=== PATIENT | male | born 1960 | race Caucasian/White ===

== ENCOUNTER 2023-10-26 00:16 | Day surgery (SDC) | payer BC, SELFPAY ==
[2023-10-09 15:21] VITALS: BMI 27.8
[2023-10-26 06:42] VITALS: BP 124/83; PULSE 99; RESP 18; TEMP 36.2; O2SAT 97
[2023-10-26] MEDS: LACTATED RINGERS 1,000 ML 150 ML IV CONT (06:52)
--- NOTE | 2023-10-26 07:06 | WPDANESEPPF ---
Anes - Initial Pre Proc Eval Procedure: Operation Date: 10/26/23 08:00 Proposed Procedures p Colonoscopy - Trell Diaz MD Date/Time: 10/26/23 07:06 Surgeon: Trell Diaz MD Pre Op Diagnosis: hx colon polyps Patient Data Age: 62 Gender: M Height: 1.83 m Weight: 91.8 kg Last Vital Signs Temp 36.2 C L 10/26/23 06:42 Pulse 99 10/26/23 06:42 Resp 18 10/26/23 06:42 BP 124/83 10/26/23 06:42 Pulse Ox 97 10/26/23 06:42 O2 Del Method Room Air 10/26/23 06:42 Allergies Allergy/AdvReac Type Severity Reaction Status Date / Time No Known Allergies Allergy Verified 10/26/23 06:41 Home Medications Medication Instructions Recorded Confirmed Type albuterol sulfate 90 mcg/actuation 90 inh inhalation PRN PRN 10/09/23 10/09/23 History aerosol inhaler Shortness Of Breath Or Wheezing fluticasone furoate 100 100 inh inhalation PRN PRN 10/09/23 10/09/23 History mcg-vilanterol 25 mcg/dose Shortness Of Breath Or Wheezing inhalation powder (Breo Ellipta) Patient hx anesthesia problems: none Family hx anesthesia problems: none Results Review: All pre-operative results and documents have been reviewed as part of the pre-operative evaluation. [facility] Past Medical History Medical History Prostate cancer Surgical History Surgical History History of prostatectomy Family History Family History Grandparent Diabetes mellitus Sibling Diabetes mellitus Mother Hypertension Father Patient's father is Social History Social History Smoking status: Never smoker Alcohol intake: current Alcohol use details: weekends occasionally Substance use: never Substance use type: does not use Lack of Transportation: No Lack of Food: Never True Current Housing: I Have Housing Concerned About Future Housing: No Difficulty Paying Gas/Electric Bills: No Difficulty Paying for Meds: No Currently Unemployed: No Education: Bachelor's Degree Living arrangements: with family Spiritual care concerns: No Anes - Eval Final PreProcedure Day of Procedure 10/26/23 07:06 Patient weight: overweight Heart: regular rate and rhythm Lungs: clear to auscultation Airway: Mallampati scale class II Neurological: alert and oriented Last oral intake: >/= 8 hours ASA classification: III Emergent: no Anesthetic plan: proceed Anesthesia type and monitoring: general GIVS and standard monitoring Results Review: All pre-operative results and documents have been reviewed as part of the pre-operative evaluation. Informed Consent: The patient's anesthetic plan and its attendant risks and benefits were discussed with the patient/family/POA. Questions were solicited and answers provided to the satisfaction of the patient/family/POA.
--- NOTE | 2023-10-26 08:03 | PM.HPGS ---
History of Present Illness History of Present Illness Consent: Risks, benefits, and alternatives have been discussed and questions answered. Patient agrees to proceed with procedure. Chief complaint: hx colon polyps Narrative: Juanito Roa is a 62 year old male with colon polyp in 2010 Review of Systems Review of Systems: All systems reviewed & are unremarkable except as noted in HPI and below PMFSH Past Medical History Medical History (Updated 10/26/23 @ 08:04 by Trell Diaz MD) Colon polyp Prostate cancer Surgical History Surgical History History of prostatectomy Family History Family History Grandparent Diabetes mellitus Sibling Diabetes mellitus Mother Hypertension Father Patient's father is Social History Social History Smoking status: Never smoker Alcohol intake: current Alcohol use details: weekends occasionally Substance use: never Substance use type: does not use Lack of Transportation: No Lack of Food: Never True Current Housing: I Have Housing Concerned About Future Housing: No Difficulty Paying Gas/Electric Bills: No Difficulty Paying for Meds: No Currently Unemployed: No Education: Bachelor's Degree Living arrangements: with family Spiritual care concerns: No Meds Home Medications and Allergies Home Medications Medication Instructions Recorded Confirmed Type albuterol sulfate 90 mcg/actuation 90 inh inhalation PRN PRN 10/09/23 10/09/23 History aerosol inhaler Shortness Of Breath Or Wheezing fluticasone furoate 100 100 inh inhalation PRN PRN 10/09/23 10/09/23 History mcg-vilanterol 25 mcg/dose Shortness Of Breath Or Wheezing inhalation powder (Breo Ellipta) Allergies Allergy/AdvReac Type Severity Reaction Status Date / Time No Known Allergies Allergy Verified 10/26/23 06:41 Vital Signs Vital Signs - 24 hr 10/26/23 06:42 Temperature 97.2 F L Pulse Rate 99 Respiratory Rate 18 Blood Pressure 124/83 Pulse Oximetry 97 Oxygen Delivery Room Air Exam Const: General: comfortable and no acute distress HENMT: Face/Nose/Sinus: Normal nares present Eyes: General: appearance normal, both eyes and all related structures Neck: Neck: no JVD Resp: Auscultation: clear to auscultation bilaterally Cardio: Rate: regular rate Rhythm: regular rhythm GI: Inspection: non-distended GI Palp: Yes Soft to palpation Skin: General skin exam: normal color Neuro: General: gait normal Speech: normal speech Extrem: General: normal to inspection Psych: Mental Status: mental status grossly normal Assessment and Plan Assessment and plan (1) Colon polyp: Code(s): K63.5 - Polyp of colon Status: Acute Assessment and Plan: colonoscopy
[2023-10-26 08:23] VITALS: BP 117/71; PULSE 70; RESP 20; O2SAT 100
[2023-10-26 08:33] VITALS: BP 109/76; PULSE 71; RESP 19; O2SAT 99
[2023-10-26 08:43] VITALS: BP 120/86; PULSE 75; RESP 18; O2SAT 99
== END 2023-10-26 08:45 | disposition home or self-care (01) ==
PROVIDERS: PCP Family Medicine; Visit Provider Internal Medicine Gastroenterology
PROC: 0DJD8ZZ Inspection of Lower Intestinal Tract, Via Natural or Artificial Opening Endoscopic (ICD-10-PCS; CPT 45378; principal; 2023-10-26 08:00)
DX: Z12.11 Encounter for screening for malignant neoplasm of colon (principal); K64.8 Other hemorrhoids; Z86.010 Personal history of colon polyps; Z85.46 Personal history of malignant neoplasm of prostate; Z79.51 Long term (current) use of inhaled steroids
CPT/HCPCS: 45378; J2704; J7120

== ENCOUNTER 2024-06-09 08:30 | Outpatient (CLI) | payer BC, SELFPAY ==
[2024-06-09 11:21] LABS: Basophils Absolute Auto 0.1 K/mm3 (0.0-0.1); Basophils Percent Auto 1.3 % (0.2-1.2); Eosinophils Absolute Auto 0.4 K/mm3 (0-0.3); Eosinophils Percent Auto 8.9 % (0-4.4); Hematocrit 46.8 % (42.0-52.0); Hemoglobin 15.3 g/dL (14.0-18.0); Immature Granulocyte Absolute 0.01 K/mm3 (0.00-0.031); Immature Granulocyte Percent A 0.2 % (0-0.5); Lymphocytes Absolute Auto 1.17 K/mm3 (0.9-3.2); Lymphocytes Percent Auto 25.9 % (18.3-44.2); Mean Corpuscular HGB Conc 32.7 g/dl (32-36); Mean Corpuscular Hemoglobin 30.1 pg (26-34); Mean Corpuscular Volume 92.1 fl (80-100); Mean Platelet Volume 11.3 fl (7.4-10.4); Monocytes Absolute Auto 0.4 K/mm3 (0.1-0.6); Monocytes Percent Auto 8.9 % (2.6-8.5); Neutrophils Absolute Auto 2.5 K/mm3 (1.3-6.7); Neutrophils Percent Auto 54.8 % (45.5-73.1); Platelet Count Result 234 k/mm3 (150-375); Red Blood Count 5.08 M/mm3 (4.6-6.20); Red Cell Distribution Width 12.9 % (11.5-14.5); White Blood Count 4.5 K/mm3 (4.5-10.0)
[2024-06-09 12:41] LABS: Alanine Aminotransferase 15 U/L (6-50); Albumin Level 4.2 g/dL (3.5-5.1); Alkaline Phosphatase 62 U/L (38-126); Anion Gap 7 mmol/L (4-12); Aspartate Amino Transferase 22 U/L (17-59); Bilirubin,Total 0.9 mg/dL (0.2-1.3); Blood Urea Nitrogen 20 mg/dL (9-20); Calcium 9.6 mg/dL (8.4-10.2); Carbon Dioxide 26 mmol/L (22-30); Chloride 103 mmol/L (98-107); Cholesterol 176 mg/dL (0-200); Estimated Glomerular Filt Rate > 60; Glucose 84 mg/dL (65-110); HDL Direct 51 mg/dL; Potassium 4.6 mmol/L (3.4-5.0); Sodium 136 mmol/L (137-145); Triglycerides 80 mg/dL (<150)
[2024-06-09 12:52] LABS: LDL Cholesterol Direct 93 mg/dL
[2024-06-09 13:12] LABS: Prostate Specific Antigen < 0.1 ng/mL (< OR = 4.0)
== END 2024-06-09 08:31 | disposition home or self-care (01) ==
LOC: ANHGOSHLAB 08:31
PROVIDERS: PCP Family Medicine; Visit Provider Nurse Practitioner Family
DX: C61 Malignant neoplasm of prostate (principal); C43.59 Malignant melanoma of other part of trunk; J45.909 Unspecified asthma, uncomplicated
CPT/HCPCS: 36415; 80053; 80061; 84153; 84443; 85025

== ENCOUNTER 2024-07-23 09:50 | Outpatient (CLI) | payer BC, SELFPAY ==
--- NOTE | 2024-07-25 22:44 | WPDHOMESLEEP ---
Sleep Study - Home Unattended Date of Study: 07/23/24 Ordering Provider: Pasquale Gould MD Interpreting Provider: Sunshine Hill MD Home Sleep Study Type: Watch PAT Height: 1.83 m Weight: 90.718 kg Body Mass Index: 27.1 Neck Circumference (inches): 16 [place]: 7 Reason for Sleep Study Loud snoring, occasional daytime sleepiness, fatigue Sleep History Juanito Roa is a 63-year-old man with excessive daytime sleepiness. His [place] Sleepiness Scale score is 11 in the office. There is a high chance of dozing when he watches television or reads. He has witnessed apnea during sleeping. He does not choke or gasp during sleep. He does not have difficulties breathing when he is on his back. He does not awaken with a morning headache. He does awaken with a dry mouth in the morning. He does not have nocturnal heartburn and he does not wake at night to go to the bathroom. He typically wakes more than 3 times during the night. It in the morning he awakens using an alarm. He generally does not have difficulty falling asleep but he may have difficulty returning to sleep after he awakens during the night. He is not anxious about his sleep. He does have fatigue, excessive daytime sleepiness, he is not refreshed on waking in the morning and he does have an urge to fall asleep during the day but not while driving. He does not have any difficulties with these legs, no urge to move his legs, no improvement with dressing. He does not grind his teeth at night or clench his jaws. He does not kick excessively at night. He does not have muscle weakness with strong emotion, he does not feel paralyzed on waking or falling asleep, he does not have vivid dreamlike scenes upon awakening or falling asleep and he does not have dreams during his daytime naps. His normal bedtime is 10 15, falling asleep within 15 minutes, spending 7-1/2 hours in bed, about 6 hours sleeping. He does not take planned naps. On weekends, bedtime is about the same, 10:30 p.m., falling asleep within 15 minutes, spending 8 hours in bed and 6-1/2 hours sleeping. He never feels refreshed on waking. He generally wakes up before his and soup paid id wake time. [facility] Past Medical History Medical History (Updated 07/25/24 @ 22:54 by Sunshine Hill MD) Asthma Colon polyp Prostate cancer Surgical History Surgical History History of prostatectomy Family History Family History Grandparent Diabetes mellitus Sibling Diabetes mellitus Mother Hypertension Father Patient's father is Social History Social History (Updated 06/09/24 @ 07:57 by [place] Cervantes MA) Smoking status: Never smoker Alcohol intake: current Drinks per week: 3 Alcohol use details: weekends occasionally Substance use: never Substance use type: does not use Do You Feel Safe in your Home?: Yes Lack of Transportation: No Lack of Food: Never True Current Housing: I Have Housing Concerned About Future Housing: No Difficulty Paying Gas/Electric Bills: No Difficulty Paying for Meds: No Currently Unemployed: No Education: Bachelor's Degree Living arrangements: with family Spiritual care concerns: No Medications Home Medications ?Medication ?Instructions ?Recorded ?Confirmed ?Type albuterol sulfate 90 mcg/actuation 90 inh inhalation PRN PRN 10/09/23 10/09/23 History aerosol inhaler Shortness Of Breath Or Wheezing fluticasone furoate 100 See Rx Instructions .Route 05/23/24 Rx mcg-vilanterol 25 mcg/dose .COMPLEX #60 ea inhalation powder (Breo Ellipta) amoxicillin 500 mg capsule 500 mg PO Q8H #21 caps 06/30/24 Rx Sleep Procedure The sleep study was completed using [employer] a technically adequate device with seven channels: peripheral arterial tone, actigraphy, body position, snore, respiratory movement, pulse oximetry, sleep staging, and heart rate. Prior to using the device, the patient received verbal and written instructions for its application and was provided with the help desk phone number for additional telephonic instruction with 24-hour availability of qualified personnel to answer questions. Sleep Architecture The total recording time is 7 hours 46 minute. The total sleep time is 6 hours 34 minutes. Sleep latency is 17 minutes. REM latency is 42 minutes. The patient had 10 episodes of waking. Sleep architecture shows 23.7% deep sleep, 53.6% light sleep, and 22.7% stage REM. The patient spent 173 minutes, 43.9% of total sleep time in the supine position. Respiratory Analysis The overall AHI is 29.6 using a 3% desaturation criteria. The central AHI is 3.7. The REM AHI was 43.5. There was no evidence of Nick-Olsen respirations. Oximetry Data The oxygen desaturation index is 16.4. The mean saturation is 93%, the lowest saturation is 85%, and the patient spent 3.7 minutes, 0.9% of the sleep time, below 88%. Snoring Profile Snoring was present, average intensity 43 dB. The patient snored above 45 dB for 89 minutes, 22.6% of the sleep time. Cardiac Profile The average pulse is 65 beats per minute, the lowest pulse is 49 beats per minute, and the highest pulse is 99 beats per minute. The cardiac rhythm analysis in sleep does not show evidence of atrial fibrillation. Assessment and Plan Assessment and Plan (1) Obstructive sleep apnea: Code(s): G47.33 - Obstructive sleep apnea (adult) (pediatric) Status: Acute Assessment and Plan: This home sleep test using WatchPat on 07/23/2024 shows at least moderate obstructive sleep apnea, the apnea-hypopnea index is 29.6 using a 3% criteria, the apnea-hypopnea index is 16.4 using a 4% criteria, desaturation to 85% and moderate snoring. Patient had minimal central sleep apnea, 24 central apneas with an central apnea-hypopnea index of 3.7. There was no Nick-Olsen respiration. The patient is a candidate for PAP therapy. Options for this patient include auto PAP or in-lab CPAP titration. I recommend that this patient be prescribed Resmed AirSense 11 AutoPAP 5-15 cm H2O, CPAP mask/filters/tubing and humidifier chamber. This should be used with all episodes of sleep. Compliance should be reviewed within 31-90 days of starting therapy for usage greater than 4 hours per night greater than 70% of the nights. The patient should be asked about symptoms such as excessive daytime sleepiness, quality of sleep, decreased nocturia, increased mental functioning such as memory, mood, and concentration. If he does not improve using auto PAP he should be referred to the sleep lab for full night CPAP titration using a sleep aid such as Ambien 5 mg to 10 mg or Lunesta 2-3 mg to have at the sleep lab, if needed, to use to get to sleep and stay asleep during the titration. He should not nap on the day of the study. Data The data obtained during this sleep study is adequate for interpretation. Certification This sleep study has been reviewed by a board certified sleep medicine physician.
[2024-07-28 11:04] VITALS: BMI 27.1
== END 2024-07-24 13:27 | disposition home or self-care (01) ==
PROVIDERS: PCP Family Medicine; Visit Provider Family Medicine
DX: G47.33 Obstructive sleep apnea (adult) (pediatric) (principal); G47.30 Sleep apnea, unspecified
CPT/HCPCS: 95800